=== PATIENT | female | born 1950 | race Caucasian/White ===

== ENCOUNTER 2022-03-07 12:42 | Day surgery (SDC) | payer OTHER ==
[~2022-03-07] VITALS: Ht 149.9 cm; Wt 71.1 kg
[~2022-03-07 12:42] MED LIST: ATOR20 PO
[2022-03-07] MEDS ORDERED: LISI20 PO (13:14)
[2022-03-07] MEDS ORDERED: HYDCHL25 PO (13:15)
--- NOTE | 2022-03-07 13:23 | NUR ---
03/07/22 1323 Kika De Guzman IN AT 1313 LISSETTE IN AT 1315
[2022-03-07] MEDS ORDERED: Aspir 8181 MG PO (13:24)
[2022-03-08] MEDS ORDERED: ALEN70 PO (12:08)
[2022-03-08] MEDS ORDERED: LISINOPRIL-HCT1 EACH PO (12:09)
== END 2022-03-07 14:40 | disposition home or self-care (01) ==
LOC: ORSCSDS 12:42
PROVIDERS: Ophthalmology
PROC: 08DK3ZZ Extraction of Left Lens, Percutaneous Approach (ICD-10-PCS; principal; 2022-03-07 14:00)
DX: H25.12 Age-related nuclear cataract, left eye (principal); H21.81 Floppy iris syndrome; E78.00 Pure hypercholesterolemia, unspecified; E78.5 Hyperlipidemia, unspecified; I10 Essential (primary) hypertension; B17.8 Other specified acute viral hepatitis; E66.9 Obesity, unspecified; Z68.31 Body mass index [BMI] 31.0-31.9, adult; Z79.899 Other long term (current) drug therapy; Z79.82 Long term (current) use of aspirin
CPT/HCPCS: J2001; J2250; J3010; J3300; J3301; J7040; V2632

== ENCOUNTER → 2022-05-01 | Outpatient (CLI) | payer OTHER ==
[~2022-05-01] MED LIST changes: +ALEN70 PO; +ASPI81CH PO; +Amlodipine Bes2.5 MG PO; +Aspir 8181 MG PO; +HYDCHL25 PO; +LISI20 PO; +LISINOPRIL-HCT1 EACH PO
[2022-05-01 10:48] LABS: Source, Urine Clean Catch
[2022-05-01 12:45] LABS: Appearance, Urine Clear (Clear); Bilirubin, Urine Neg (Neg); Blood, Urine 1+ (Neg); Color, Urine Yellow (P-Yellow); Glucose Qualitative, Urine Neg (Neg); Ketones, Urine Neg (Neg); Leukocyte Esterase, Urine 3+ (Neg); Nitrite, Urine Neg (Neg); Protein, Urine Neg (Neg); Specific Gravity, Urine 1.015 (1.003-1.022); Urobilinogen, Urine NORM (Normal)
[2022-05-01 13:21] LABS: Bacteria Few /hpf; Squamous Epithelial Cells Few /hpf (Few)
== END | disposition home or self-care (01) ==
LOC: LAB 10:00 → LAB SHORT 10:00
PROVIDERS: Nurse Practitioner Family
DX: N39.0 Urinary tract infection, site not specified (principal)
CPT/HCPCS: 81001; 87077; 87086; 87186

== ENCOUNTER → 2022-05-24 | Outpatient (CLI) | payer OTHER ==
[2022-05-24 08:32] LABS: Source, Urine Clean Catch
[2022-05-24 12:50] LABS: Appearance, Urine Clear (Clear); Bilirubin, Urine Neg (Neg); Blood, Urine Neg (Neg); Color, Urine Yellow (P-Yellow); Glucose Qualitative, Urine Neg (Neg); Ketones, Urine Neg (Neg); Leukocyte Esterase, Urine 3+ (Neg); Nitrite, Urine Neg (Neg); Protein, Urine Neg (Neg); Urobilinogen, Urine NORM (Normal)
[2022-05-24 13:10] LABS: Bacteria Mod /hpf; Red Blood Cells, Urine Not Seen /hpf (0-2); Squamous Epithelial Cells Few /hpf (Few)
== END | disposition home or self-care (01) ==
LOC: LAB SHORT 08:20 → LAB 08:20
PROVIDERS: Nurse Practitioner Family
DX: N39.0 Urinary tract infection, site not specified (principal)
CPT/HCPCS: 81001; 87077; 87086; 87186

== ENCOUNTER → 2025-02-26 | Outpatient (CLI) | payer OTHER | LOC: LAB SHORT 10:15 → LAB 10:15 | DX: H92.11 Otorrhea, right ear (principal) | CPT/HCPCS: 87070; 87077; 87186; 87205; 87252 ==